=== PATIENT | female | born 1950 | race Caucasian/White ===

== ENCOUNTER 2017-11-20 06:06 | Day surgery (SDC) | payer OTHER, BC ==
[~2017-11-20 06:06] MED LIST: Lactated Ringers 1,000 ML IV SCH; ceFAZolin 2 GM in Premix Bag 1 BAG IV ONE
[2017-11-20] MEDS ORDERED: Lactated Ringers 1,000 ML IV SCH (06:30)
[2017-11-20] MEDS ORDERED: Gentamicin 40 MG/ML 2 ML Vial ONE (06:42)
[2017-11-20] MEDS ORDERED: Povidone-Iodine 10% Soln 118.25 ML Bottle ONE (06:43)
[2017-11-20] MEDS ORDERED: ceFAZolin 2 GM in Premix Bag 1 BAG IV ONE (07:00)
[2017-11-20] MEDS ORDERED: Midazolam 1 MG/ML 2 ML SDV ONE (07:20)
[2017-11-20] MEDS ORDERED: fentaNYL 100 MCG/2 ML SDV ONE (07:20)
[2017-11-20] MEDS ORDERED: Propofol 200 MG/20 ML SDV ONE ×2 (07:21→08:09)
[2017-11-20] MEDS ORDERED: TRANEXAMIC ACID IV SCH ×2 (07:45→10:00)
[2017-11-20] MEDS ORDERED: SODIUM CHLORIDE 0.9% IV SCH ×2 (07:45→10:00)
[2017-11-20] MEDS ORDERED: Ropivacaine 49.25 ML, Ketorolac 30 MG, EPINEPHrine 0.5 MG, cloNIDine 80 MCG, Sodium Chl... INJECT ONE ×5 (07:45)
[2017-11-20] MEDS ORDERED: Phenylephrine 1% 10 MG/ML SDV ONE (08:43)
[2017-11-20] MEDS ORDERED: Aluminum Hydroxide/Magnesium Hydroxide/Simethicone Susp 30 ML Cup PO PRN (09:07)
[2017-11-20] MEDS ORDERED: Zolpidem 5 MG Tab PO PRN (09:07)
[2017-11-20] MEDS ORDERED: diphenhydrAMINE 50 MG/ML SDV IVPUSH PRN (09:07)
[2017-11-20] MEDS ORDERED: Ondansetron 4 MG/2 ML SDV IVPUSH PRN (09:07)
[2017-11-20] MEDS ORDERED: traMADol 50 MG Tab PO PRN (09:07)
[2017-11-20] MEDS ORDERED: Ketorolac 30 MG/ML SDV IVPUSH PRN (09:07)
[2017-11-20] MEDS ORDERED: Acetaminophen 1,000 MG in Premix Bag 1 BAG IV ONE ×2 (09:07→11:30)
[2017-11-20] MEDS ORDERED: Naloxone 0.4 MG/ML SDV IVPUSH PRN (09:07)
[2017-11-20] MEDS ORDERED: Morphine 2 MG/ML Syringe IVPUSH PRN (09:07)
[2017-11-20] MEDS ORDERED: Cetirizine 10 MG Tab PO PRN (09:12)
[2017-11-20] MEDS ORDERED: Fluticasone Propionate Nasal Spray 16 GM Bottle NASBOTH PRN (09:12)
[2017-11-20] MEDS ORDERED: Non-Formulary Medication 1 Each (Olopatadine [Patanol 0.1% Ophth Soln] 1 DROP) EYEBOTH PRN (09:12)
[2017-11-20] MEDS ORDERED: Meclizine 25 MG Tab PO PRN (09:12)
[2017-11-20] MEDS ORDERED: Hyoscyamine 0.125 MG Tab.SL PO PRN (09:12)
[2017-11-20] MEDS ORDERED: Albuterol 0.083% 2.5 MG/3 ML Neb Soln INH PRN (09:12)
[2017-11-20] MEDS ORDERED: Albuterol 8 GM Inhaler INH PRN (09:12)
[2017-11-20] MEDS ORDERED: ceFAZolin 1 GM in Sodium Chloride 0.9% 50 ML IV SCH (09:15)
[2017-11-20] MEDS ORDERED: ESTRADIOL TOP SCH (09:15)
--- NOTE | 2017-11-20 10:19 | CR ---
Knee 1V or 2V Rt CLINICAL HISTORY: Postop FINDINGS: Patient has had a medial partial arthroplasty. There is some subcutaneous and synovial air and fluid. Components appear well seated. Impression: Status post partial arthroplasty
[2017-11-20] MEDS ORDERED: OLOPATADINE 0.1% EYEBOTH PRN (10:41)
[2017-11-20] MEDS: oxyCODONE 5 MG Tab PO PRN ×3 (12:15→22:06)
[2017-11-20] MEDS: ceFAZolin 1 GM in Premix Bag 1 BAG IV SCH ×2 (14:49→22:05)
--- NOTE | 2017-11-20 15:04 | OR ---
DATE OF PROCEDURE: 11/20/2017 PREOPERATIVE DIAGNOSIS: Right knee primary osteoarthritis. POSTOPERATIVE DIAGNOSIS: Right knee primary osteoarthritis. PROCEDURE: Right knee unicompartmental medial knee arthroplasty. PACK OPERATOR: CATHERINE Mullins ANESTHESIA: Spinal plus conscious sedation. FLUID: Lactated Ringer solution. ESTIMATED BLOOD LOSS: 50 mL. COMPLICATIONS: None. SPECIMEN: None. DISCHARGE DISPOSITION: Stable to PACU. INSTRUMENTATION: DePuy Sigma unicompartmental partial knee. INDICATIONS: The patient was seen preoperatively in the clinic. She had failed nonoperative treatment. Preoperative imaging confirmed the above-mentioned diagnosis. Risks and benefits of the procedure were explained to the patient and informed consent was obtained. DESCRIPTION OF PROCEDURE: The patient was seen preoperatively by myself and the Anesthesia staff in the preoperative holding area, where the operative site was marked. She was brought to the operative suite by the Anesthesia staff, where spinal anesthesia plus conscious sedation was administered. A well-padded tourniquet was placed on the right thigh and SCDs were on the left leg. The left leg was placed into a stirrup. The right leg, after the tourniquet was applied, was placed into U-rivas with a gel pad underneath. The right lower extremity was then prepped and draped in a sterile manner. Time-out was called identifying the correct patient, the correct procedure, the correct site, and that antibiotics had been begun within an appropriate period of time. The right lower extremity was then exsanguinated. Tourniquet was raised to 250 mmHg for 42 minutes and let down after cementing an incision from the tibial tubercle over the medial aspect of the patella and then to the superior pole of patella was then made. A medial parapatellar arthrotomy was then made. Bleeding was controlled during the case with Bovie electrocautery. Gelpis were used for retraction. The infrapatellar fat pad was removed. A medial synovectomy was performed. Part of the anterior portion of the medial meniscus was removed. We then placed our extramedullary guide on the tibia and pinned in place with a 2-mm Feeler gauge and then made the cut. I then used a 7-mm spacer, which was not able to enter in flexion or extension. I then re-did my cut and then was able to get the 7 in flexion and then a 10 in extension. We then removed our pins. I then placed a 3-mm darrion on my distal femoral guide. I then put the knee in extension with the distal femoral guide, pinned it in place, and then made my distal femoral cut. Please note that, before I did this, I did ofelia my rotation with my tibial spacer. After making the distal femoral cut, I then used my tibial guide and placed the knee in flexion and then made another ofelia. I then connected the anterior and posterior markings for reference. I then flexed the knee and then used my guide and pinned it in place with the lateral hole of the proximal portion of the guide going through the AP line in its most proximal portion. I then pinned this guide in place medially and laterally, and then made my chamfer cuts as well as my lug drill holes. After this had been performed, we removed the guide and removed any extra bone using a small osteotome. I then trialed my femur and then placed a 7-mm tibial spacer, which provided good clearance and stability. We then removed the femoral component and the tibial guide. I then placed my keel guide and pinned it in place and then cut my keel as well as the lug in the tibial baseplate. We then removed this and then trialed with the femoral component, tibial baseplate component, and insert. This provided excellent stability. We then removed all our components, copiously irrigated with saline, and then cemented our final components in place, which was a 7-mm polyethylene spacer. We then removed any extra cement and then kept the leg in extension and let the tourniquet down during cementing at 42 minutes. After the cement had dried, we controlled any extraneous bleeders with Bovie electrocautery and made sure we had no extra cement. This provided excellent range of motion as well as stability throughout motion. We then closed with #2 STRATAFIX, 3-0 STRATAFIX, skin gualberto, and a sterile dressing. The patient was then transferred to her hospital bed after removing the tourniquet and taken to the PACU in a stable condition. Hemal Hendrix DO /[id number]
[2017-11-20] MEDS: Cholestyramine/Sucrose Powder 4 GM Packet PO SCH (20:29)
[2017-11-20] MEDS: Docusate Sodium 100 MG Cap PO SCH (20:30)
[2017-11-20] MEDS: Sennosides 8.6 MG Tab PO SCH (20:30)
[2017-11-20] MEDS: CEVIMELINE 30 MG PO SCH (20:31)
[2017-11-20] MEDS: Formoterol/Mometasone 200-5 MCG 8.8 GM Inhaler IH SCH (20:31)
[2017-11-20] MEDS: Magnesium Hydroxide 400 MG/5 ML Susp 30 ML Cup PO SCH (20:31)
[2017-11-20] MEDS ORDERED: Cholestyramine/Sucrose Powder 4 GM Packet PO SCH (21:00)
[2017-11-20] MEDS ORDERED: Non-Formulary Medication 1 Each (Fluticasone/Salmeterol [Advair 250-50 Diskus] 1 PUFF) INH SCH (21:00)
[2017-11-20] MEDS ORDERED: Docusate Sodium 100 MG Cap PO SCH ×3 (21:00)
[2017-11-20] MEDS ORDERED: Montelukast 10 MG Tab PO SCH (21:00)
[2017-11-20] MEDS ORDERED: rOPINIRole 0.5 MG Tab PO SCH ×2 (21:00)
[2017-11-20] MEDS ORDERED: Montelukast 5 MG Tab.Chew PO SCH (21:00)
[2017-11-20] MEDS ORDERED: Nortriptyline 25 MG Cap PO SCH ×2 (21:00)
[2017-11-20] MEDS ORDERED: Sennosides 8.6 MG Tab PO SCH (21:00)
[2017-11-20] MEDS ORDERED: Famotidine 20 MG Tab PO SCH ×2 (21:00)
[2017-11-20] MEDS ORDERED: Magnesium Hydroxide 400 MG/5 ML Susp 30 ML Cup PO SCH (21:00)
[2017-11-21] MEDS: oxyCODONE 5 MG Tab PO PRN ×2 (02:34→06:38)
[2017-11-21] MEDS: ceFAZolin 1 GM in Premix Bag 1 BAG IV SCH (05:33)
[2017-11-21] MEDS: Formoterol/Mometasone 200-5 MCG 8.8 GM Inhaler IH SCH (07:33)
[2017-11-21] MEDS ORDERED: Non-Formulary Medication 1 Each (Multivitamin With Minerals [Multiple Vitamin] 1 TAB) PO SCH (09:00)
[2017-11-21] MEDS ORDERED: Aspirin 325 MG Tab.EC PO SCH ×2 (09:00→09:07)
[2017-11-21] MEDS ORDERED: Bisacodyl 5 MG Tab PO SCH ×2 (09:00)
[2017-11-21] MEDS ORDERED: Multivitamins with Iron/Calcium/Folic Acid/Minerals Tab PO SCH (09:00)
[2017-11-21] MEDS ORDERED: Sodium Chloride 0.9% 10 ML Syringe FLUSH SCH (09:00)
[2017-11-21] MEDS ORDERED: Montelukast 10 MG Tab PO SCH ×2 (09:00)
[2017-11-21] MEDS ORDERED: Acetaminophen/oxyCODONE 325-5 MG Tab PO PRN (09:07)
[2017-11-21] MEDS: Docusate Sodium 100 MG Cap PO SCH (09:09)
[2017-11-21] MEDS: Sennosides 8.6 MG Tab PO SCH (09:09)
[2017-11-21] MEDS: Cholestyramine/Sucrose Powder 4 GM Packet PO SCH ×2 (09:09→09:13)
[2017-11-21] MEDS: Magnesium Hydroxide 400 MG/5 ML Susp 30 ML Cup PO SCH (09:09)
[2017-11-21] MEDS: CEVIMELINE 30 MG PO SCH ×2 (09:10→15:23)
[2017-11-22] MEDS ORDERED: ESTRADIOL 0.01% TOP SCH (09:00)
== END 2017-11-21 15:38 | disposition home or self-care (01) ==
LOC: UNDOADMIN 06:06 → JP.SDS 06:06 → JP.SDSSCHI 06:06 → EDSTATUS 07:30 → JP.SDSSCHI 09:08 → JP.MS 09:08 → JP.SDS 11-21 15:38 → UNDODISIN 11-21 15:38
PROVIDERS: ATTEND Orthopaedic Surgery
DX: M17.11 Unilateral primary osteoarthritis, right knee (principal); Z88.8 Allergy status to other drugs, medicaments and biological substances; Z79.899 Other long term (current) drug therapy
CPT/HCPCS: 27446; 36415; 73560; 80053; 85025; 94664; 97110; 97161; 97165; 97530; 97535; A9270; C1713; J0131; J0171; J0690; J0735; J1580; J1885; J2250; J2370; J2704; J2795; J3010; J7050; J7120

== ENCOUNTER 2019-02-02 06:22 | Day surgery (SDC) | payer OTHER ==
[2019-02-02] MEDS ORDERED: Bupivacaine 0.25% 10 ML SDV ONE (06:40)
[2019-02-02] MEDS ORDERED: Nozin Nasal Sanitizer NASBOTH ONE (06:47)
[2019-02-02] MEDS ORDERED: Lactated Ringers 1,000 ML IV SCH (07:15)
[2019-02-02] MEDS ORDERED: Rocuronium 50 MG/5 ML Vial ONE (07:23)
[2019-02-02] MEDS ORDERED: Neostigmine Methylsulfate 1 MG/ML 5 ML Syringe ONE (07:23)
[2019-02-02] MEDS ORDERED: Propofol 200 MG/20 ML SDV ONE (07:23)
[2019-02-02] MEDS ORDERED: Ondansetron 4 MG/2 ML SDV ONE (07:23)
[2019-02-02] MEDS ORDERED: Dexamethasone 4 MG/ML SDV ONE (07:23)
[2019-02-02] MEDS ORDERED: Glycopyrrolate 0.2 MG/ML 5 ML MDV ONE (07:23)
[2019-02-02] MEDS ORDERED: Succinylcholine 200 MG/10 ML MDV ONE (07:23)
[2019-02-02] MEDS ORDERED: fentaNYL 250 MCG/5 ML SDV ONE (07:24)
[2019-02-02] MEDS ORDERED: ceFAZolin 2 GM in Premix Bag 1 BAG IV ONE (08:00)
[2019-02-02] MEDS ORDERED: ceFAZolin 2 GM in Sodium Chloride 0.9% 100 ML IV ONE (08:00)
[2019-02-02] MEDS ORDERED: Ketorolac 60 MG/2 ML SDV ONE (08:43)
[2019-02-02] MEDS ORDERED: Acetaminophen/HYDROcodone 325-5 MG Tab PO PRN (09:48)
--- NOTE | 2019-02-05 14:50 | OR ---
DATE OF PROCEDURE: 02/02/2019 SURGEON: Souleymane Mcclure MD PREOPERATIVE DIAGNOSIS: Lateral meniscus tear, right knee. POSTOPERATIVE DIAGNOSES: 1. Degenerative lateral meniscus tear, right knee. 2. Chondral defect, lateral femoral condyle, right knee. PROCEDURE: Arthroscopy, right knee, with partial lateral meniscectomy. ANESTHESIA: General. INDICATIONS: Danika Kaufman is a very pleasant 68-year-old female with history of a right medial unicompartmental arthroplasty done on 11/21/2017. She has been having persistent pain in the lateral aspect of the knee for the past several months. She has failed conservative treatment with physical therapy and injection. Unable to get significant meaningful imaging due to the medial compartment implant. She now presents for arthroscopic evaluation of the knee for a probable lateral meniscus tear. Risks, benefits, and potential complications of the procedure were discussed. DESCRIPTION OF PROCEDURE: After adequate anesthesia was obtained, the patient was placed supine with a tourniquet about the right upper thigh. Right leg was prepped and draped in a sterile fashion. Leg was exsanguinated and tourniquet inflated to 250 mmHg. A standard inferior anterolateral portal was established. The scope was introduced. Medial portal was then established under direct visualization, avoiding contact with the implant. Evaluation of the knee revealed a medial unicompartmental arthroplasty without evidence of complication. Mild encroachment of some scar tissue and pseudo-meniscus onto the tibial implant was present. A portion of this was debrided for better visualization of the implant and medial compartment. No obvious loosening or complications were noted. Evaluation of the patellofemoral joint revealed some mild grade 1 and early grade 2 changes in the trochlear groove without significant irregularity or full-thickness loss. Lateral compartment revealed a linear defect in the articular cartilage in the lateral femoral condyle, running from anterior to posterior, which was approximately 2 mm in width and runs for a distance of approximately 12 to 14 mm along the weightbearing surface of the lateral femoral condyle, just slightly lateral to the midline of the condyle. This was a very regular longitudinal defect, which had the appearance of having been gouged by a foreign body or instrument of some type. Certainly, it did not have a typical appearance of chondromalacia or other degenerative change. Some minor fibrillation was present on the very anterior edge of the defect. Adjacent to the edge of the defect was a degenerative tear of the lateral meniscus at approximately the junction between the anterior horn and midbody. This was debrided with shaver, taking this back to a stable margin, performing a minor partial lateral meniscectomy. Due to the unusual nature of the defect, it was thought that there was a potential for a loose body such as a piece of polymethylmethacrylate from the cementing of the medial prosthesis or other hard foreign body that might cause this. The knee was thoroughly irrigated and explored, including the suprapatellar pouch, medial and lateral gutters, and the area beneath the meniscus laterally and back into the popliteal hiatus. No evidence of a foreign body or other reason for the furrow could be identified. The knee was then drained and scope was withdrawn. Port sites were closed in a standard fashion, infiltrated with Marcaine, and a sterile dressing was applied. The patient tolerated the procedure very well. There were no complications. She was taken from the operating room in a stable condition. Souleymane Mcclure MD /[id number]
== END 2019-02-02 10:55 | disposition home or self-care (01) ==
LOC: JP.SDS 06:22
PROVIDERS: ATTEND Specialist
DX: M23.361 Other meniscus derangements, other lateral meniscus, right knee (principal); M94.8X6 Other specified disorders of cartilage, lower leg; G89.29 Other chronic pain; M25.561 Pain in right knee; J45.909 Unspecified asthma, uncomplicated; Z88.7 Allergy status to serum and vaccine; Z96.651 Presence of right artificial knee joint; Z79.51 Long term (current) use of inhaled steroids; Z79.899 Other long term (current) drug therapy; Z98.890 Other specified postprocedural states
CPT/HCPCS: 29881; A9270; J0330; J0690; J1100; J1885; J2405; J2704; J2710; J3010; J3490; J7120

== ENCOUNTER 2020-06-06 08:29 | Inpatient (IN) | payer OTHER ==
[2020-06-13] MEDS ORDERED: Povidone-Iodine 10% Soln 118.25 ML Bottle ONE (06:57)
[2020-06-13] MEDS ORDERED: Lactated Ringers 1,000 ML IV SCH (09:00)
[2020-06-13] MEDS ORDERED: Scopolamine 1.5 MG Transdermal Patch TOP SCH (09:30)
[2020-06-13] MEDS: Nozin Nasal Sanitizer NASBOTH SCH ×2 (09:35→21:03)
[2020-06-13] MEDS ORDERED: Propofol 200 MG/20 ML SDV ONE ×2 (10:50→12:22)
[2020-06-13] MEDS ORDERED: Midazolam 1 MG/ML 2 ML SDV ONE (10:50)
[2020-06-13] MEDS ORDERED: fentaNYL 100 MCG/2 ML SDV ONE (10:50)
[2020-06-13] MEDS ORDERED: ceFAZolin 1 GM Vial ONE (11:40)
[2020-06-13] MEDS ORDERED: Lactated Ringers 1,000 ML ONE (12:11)
[2020-06-13] MEDS ORDERED: Acetaminophen/HYDROcodone 325-5 MG Tab PO PRN (13:13)
[2020-06-13] MEDS ORDERED: Morphine 2 MG/ML SYRINGE IVPUSH PRN (13:13)
[2020-06-13] MEDS ORDERED: Ketorolac 30 MG/ML SDV IVPUSH SCH (13:15)
[2020-06-13] MEDS ORDERED: ceFAZolin 1 GM in Sodium Chloride 0.9% 50 ML IV SCH (13:15)
[2020-06-13] MEDS ORDERED: Famotidine 20 MG Tab PO PRN (13:21)
[2020-06-13] MEDS ORDERED: CEVIMELINE 30 MG PO PRN ×2 (13:21→14:22)
[2020-06-13] MEDS ORDERED: Cetirizine 10 MG Tab PO PRN (13:21)
[2020-06-13] MEDS ORDERED: Fluticasone Propionate Nasal Spray 16 GM Bottle NASBOTH PRN (13:21)
[2020-06-13] MEDS ORDERED: Albuterol 0.083% 2.5 MG/3 ML Neb Soln INH PRN (13:21)
[2020-06-13] MEDS ORDERED: Meclizine 25 MG Tab PO PRN (13:21)
[2020-06-13] MEDS ORDERED: Albuterol 8 GM Inhaler INH PRN (13:21)
[2020-06-13] MEDS ORDERED: Non-Formulary Medication 1 Each (Hyoscyamine [Levsin] 0.125 MG) PO PRN (13:21)
[2020-06-13] MEDS ORDERED: ESTRADIOL TOP SCH ×2 (13:30→14:30)
[2020-06-13] MEDS ORDERED: Formoterol/Mometasone 200-5 MCG 8.8 GM Inhaler IH PRN (13:45)
[2020-06-13] MEDS ORDERED: Ketotifen 0.025% Ophth Soln 5 ML Bottle EYEBOTH PRN (13:46)
[2020-06-13] MEDS ORDERED: Hyoscyamine 0.125 MG Tab.SL SL PRN (14:00)
--- NOTE | 2020-06-13 14:04 | CR ---
Knee 1V or 2V Rt CLINICAL HISTORY: Right knee revision FINDINGS: Patient has had 3 component total knee arthroplasty. This is a revision of a hemiarthroplasty. Components appear well seated. There is intra-articular and subcutaneous air Impression: Status post 3 component total knee arthroplasty
[2020-06-13] MEDS: Sodium Chloride 0.9% 1,000 ML IV SCH ×2 (14:27→22:53)
[2020-06-13] MEDS: Acetaminophen/oxyCODONE 325-5 MG Tab PO PRN ×2 (14:52→21:11)
[2020-06-13] MEDS: SCOPOLAMINE PATCH CHECK TOP SCH (14:55)
[2020-06-13] MEDS: Ketorolac 30 MG/ML SDV IVPUSH SCH (15:57)
[2020-06-13] MEDS: ceFAZolin 1 GM in Premix Bag 1 BAG IV SCH (17:04)
[2020-06-13] MEDS ORDERED: Montelukast 10 MG Tab PO SCH (21:00)
[2020-06-13] MEDS ORDERED: rOPINIRole 0.5 MG Tab PO SCH (21:00)
[2020-06-13] MEDS ORDERED: Docusate Sodium 100 MG Cap PO SCH (21:00)
[2020-06-13] MEDS ORDERED: Nortriptyline 25 MG Cap PO SCH (21:00)
[2020-06-13] MEDS: Docusate Sodium 100 MG Cap PO SCH (21:02)
[2020-06-13] MEDS: Montelukast 10 MG Tab PO SCH (21:02)
[2020-06-13] MEDS: rOPINIRole 0.5 MG Tab PO SCH (21:03)
[2020-06-13] MEDS: Nortriptyline 25 MG Cap PO SCH (21:03)
[2020-06-14] MEDS: Ketorolac 30 MG/ML SDV IVPUSH SCH ×4 (00:20→23:59)
[2020-06-14] MEDS: ceFAZolin 1 GM in Premix Bag 1 BAG IV SCH ×2 (01:31→09:34)
[2020-06-14] MEDS: Acetaminophen/oxyCODONE 325-5 MG Tab PO PRN ×3 (02:53→13:44)
[2020-06-14] MEDS: Sodium Chloride 0.9% 1,000 ML IV SCH (07:28)
[2020-06-14] MEDS: Enoxaparin 30 MG/0.3 ML Syringe SUBCUT SCH (08:09)
[2020-06-14] MEDS: Docusate Sodium 100 MG Cap PO SCH ×2 (08:10→20:45)
[2020-06-14] MEDS: Nozin Nasal Sanitizer NASBOTH SCH ×2 (08:10→20:45)
[2020-06-14] MEDS ORDERED: Enoxaparin 30 MG/0.3 ML Syringe SUBCUT SCH (09:00)
[2020-06-14] MEDS: SCOPOLAMINE PATCH CHECK TOP SCH (13:46)
[2020-06-14] MEDS: rOPINIRole 0.5 MG Tab PO SCH (20:45)
[2020-06-14] MEDS: Montelukast 10 MG Tab PO SCH (20:45)
[2020-06-14] MEDS: Nortriptyline 25 MG Cap PO SCH (20:46)
[2020-06-15] MEDS: Acetaminophen 325 MG Tab PO PRN ×2 (00:06→13:24)
[2020-06-15] MEDS: Ketorolac 30 MG/ML SDV IVPUSH SCH (08:14)
[2020-06-15] MEDS: Nozin Nasal Sanitizer NASBOTH SCH (09:27)
[2020-06-15] MEDS: Docusate Sodium 100 MG Cap PO SCH (09:31)
[2020-06-15] MEDS: Enoxaparin 30 MG/0.3 ML Syringe SUBCUT SCH (09:31)
[2020-06-15] MEDS: SCOPOLAMINE PATCH CHECK TOP SCH (09:32)
[2020-06-15] MEDS ORDERED: Magnesium Hydroxide 400 MG/5 ML Susp 30 ML Cup PO ONE (10:15)
[2020-06-15] MEDS: Acetaminophen/oxyCODONE 325-5 MG Tab PO PRN (10:36)
[2020-06-19] MEDS ORDERED: Alendronate 70 MG Tab PO SCH (07:30)
--- NOTE | 2020-06-27 19:02 | OR ---
DATE OF PROCEDURE: 06/13/2020 SURGEON: Souleymane Mcclure MD PREOPERATIVE DIAGNOSIS: Failed right medial unicompartmental arthroplasty. POSTOPERATIVE DIAGNOSIS: Failed right medial unicompartmental arthroplasty with loose femoral component. PROCEDURE: Revision of unicompartmental arthroplasty to total knee arthroplasty using Cory LCCK components with size 4 femur with a 14 x 100 mm stem, size D tibia with an 11 x 100 mm offset stem, 12 mm posterior stabilized polyethylene, and a 29 mm patella. ANESTHESIA: Spinal with sedation. INDICATIONS: Danika Kaufman is a very pleasant 70-year-old female with a history of previous medial unicompartmental arthroplasty who has been having persistent right knee pain. This is most prominent in the lateral aspect of the knee, but has some diffuse pain getting progressively worse over the last several months. She underwent a previous arthroscopy after the unicompartmental arthroplasty revealing articular cartilage defect in the lateral femoral condyle. X-rays show a progressive valgus malalignment which is also visible clinically. She now presents for conversion of the unicompartmental arthroplasty to a total knee arthroplasty. Risks, benefits, potential complications of procedure were discussed. PROCEDURE IN DETAIL: After adequate anesthesia was obtained, the patient was placed supine with a tourniquet about the right upper thigh and right leg was prepped and draped in a sterile fashion. Leg was exsanguinated and tourniquet inflated to 250 mmHg pressure. Previous incision was utilized and extended slightly inferiorly and more superiorly up over the patellar tendon. Medial parapatellar arthrotomy was performed. The previously placed nonabsorbable sutures were encountered and these were removed with a combination of Akosua clamp and rongeur. There was no evidence of infection. The components were not grossly loose. The femoral component was quite prominent distally. Using a combination of curved and straight small osteotomes, the femoral component was loosened and removed easily and very minimal bone loss consistent with early loosening. Attention was then turned to the tibia side. Polyethylene was removed with an osteotome. Working beneath the component with a straight osteotome, the component was loosened and removed. This did not show any significant loosening and had good penetration of bone cement in the tibia. Osteotome was used to remove remaining portions of the bone cement in both the femur and the tibia. Intramedullary canal of the femur was then drilled and the intramedullary guide was placed. This was referenced off the lateral compartment condyle and resulted in a light freshening of the distal medial condyle as well. Working off the intramedullary guide, the femur was sized and the distal femoral cutting jig was secured, remaining cuts were made laterally. The posterior and chamfer cuts were freshened medially. Drill holes were made in the condyles. The guide and the intramedullary portion were removed. Trial femoral component was placed and the intramedullary notch was then cut for a posterior cruciate- sacrificing component. Initial drill was then placed into the tibia and down the canal. This was sequentially reamed and the last reamer was left in place. Tibial cutting jig was secured to the intramedullary reamer and this resulted in minimal resection of bone medially and the remaining lateral tibial plateau was removed. Lateral meniscus was excised. The tibia was sized and position set using the offset guide. The intramedullary reamer was removed. The metaphysis was then reamed once again with a larger size and the pins were then cut. The femoral trial was replaced along with a 10-mm tibial insert. Attention was turned to the patella. This was partially everted and held with towel clips. The posterior aspect of the patella was resected with an oscillating saw. This was sized and peg holes were drilled and a trial component was placed. The knee was then taken through range of motion. It had full extension, overall alignment looked very good. There was still just a slight amount of play both medially and laterally and an additional 2 mm was added to the tibial trial. This resulted in excellent balance in flexion and extension and no lateral release was needed. Patella tracked very well. The components were removed. The knee was thoroughly irrigated with pulse lavage. Bone surfaces were dried. The components were then assembled on the back table and cemented in place. Excess cement was removed. The knee was held in full extension with a 12-mm trial insert as cement cured. Once this had occurred, the knee was again taken through range of motion and the balance was assessed in both flexion and extension with excellent stability. The trials were removed. The knee was irrigated. Final polyethylene was snapped into position. The knee was irrigated once again followed by a dilute Betadine solution which was left in place for 2.5 minutes and then irrigated with pulse lavage. The capsule was closed with #2 Ethibond in interrupted fashion. The skin was closed with 2-0 Vicryl and a running 3-0 Monocryl. Steri-Strips were applied. Light compressive dressing was then placed. The patient tolerated the procedure very well. There were no complications. Taken from the operating room in stable condition. Souleymane Mcclure MD /[id number] MTDD
== END 2020-06-15 16:20 | disposition home or self-care (01) | DRG 468 ==
LOC: JP.SDSSCHI 06-13 08:38 → JP.SDS 06-13 08:38 → EDSTATUS 06-13 10:30 → JP.MS 06-13 13:13
PROVIDERS: ADMIT Specialist; ATTEND Specialist
PROC: 0SPC0LZ Removal of Medial Unicondylar Synthetic Substitute from Right Knee Joint, Open Approach (ICD-10-PCS; principal; 2020-06-13)
PROC: 0SRC0L9 Replacement of Right Knee Joint with Medial Unicondylar Synthetic Substitute, Cemented, Open Approach (ICD-10-PCS; 2020-06-13)
DX: T84.032A Mechanical loosening of internal right knee prosthetic joint, initial encounter (principal); G25.81 Restless legs syndrome; J45.909 Unspecified asthma, uncomplicated; I73.9 Peripheral vascular disease, unspecified; K21.9 Gastro-esophageal reflux disease without esophagitis; K58.0 Irritable bowel syndrome with diarrhea; Z88.8 Allergy status to other drugs, medicaments and biological substances; Z79.82 Long term (current) use of aspirin; Z79.899 Other long term (current) drug therapy
CPT/HCPCS: 27447; 36415; 73560-26-RT; 73560-RT; 86850; 86900; 86901; 93005; 93010; 97110-GP; 97116-GP; 97161-GP; 97165-GO; 97530-GP; 97535-GP; A9270-GY; C1713; C1776; J0690; J1650; J1885; J2250; J2270; J2704; J3010; J7030; J7120

== ENCOUNTER 2020-08-08 07:22 | Day surgery (SDC) | payer OTHER ==
[~2020-08-08 07:22] MED LIST changes: +Bupivacaine 0.5%/EPINEPHrine 1:200,000 50 ML MDV ONE; -Lactated Ringers 1,000 ML IV SCH; -ceFAZolin 2 GM in Premix Bag 1 BAG IV ONE; +methylPREDNISolone Acetate 80 MG/ML SDV ONE
[2020-08-08] MEDS ORDERED: Lactated Ringers 1,000 ML IV SCH (09:15)
[2020-08-08] MEDS ORDERED: Midazolam 1 MG/ML 2 ML SDV ONE (10:26)
[2020-08-08] MEDS ORDERED: Propofol 200 MG/20 ML SDV ONE (10:26)
[2020-08-08] MEDS ORDERED: fentaNYL 100 MCG/2 ML SDV ONE (10:26)
--- NOTE | 2020-08-22 16:25 | OR ---
DATE OF PROCEDURE: 08/08/2020 SURGEON: Souleymane Mcclure MD PREOPERATIVE DIAGNOSIS: Arthrofibrosis, right knee. POSTOPERATIVE DIAGNOSIS: Arthrofibrosis, right knee. PROCEDURE: Manipulation under anesthesia right knee and injection of cortisone. INDICATIONS: Danika Kaufman is a 70-year-old female who underwent a right total knee arthroplasty approximately 2 months ago and has had difficulty regaining range of motion. She has done well with extension, but has been unable to get beyond 100 degrees of flexion despite aggressive physical therapy. She now presents for manipulation under anesthesia. The risks, benefits, potential complications of the procedure were discussed. DESCRIPTION OF PROCEDURE: After adequate sedation was obtained with the patient supine on a gurney, the knee was brought up into flexion with a hard stop at approximately 98 degrees. Gentle progressive flexion force was applied to the knee with a palpable release of adhesions. Initial flexion was obtained to approximately 118 degrees. Knee was then extended and flexed once again, and with further slow gentle pressure, approximately 124 degrees of flexion could be obtained. This was repeated once again and held at approximately 120 degrees for 15 to 20 seconds. The knee was then extended. Superior lateral aspect of the knee was prepped with alcohol followed by a prep with ChloraPrep and then injected with 80 mg of Depo-Medrol along with 10 mL of 0.5% Marcaine. A Band-Aid was applied. The patient tolerated the procedure very well. There were no complications. She was taken from the operating room in stable condition. Souleymane Mcclure MD /[id number]
== END 2020-08-08 12:00 | disposition home or self-care (01) ==
LOC: JP.SDS 07:22
PROVIDERS: ATTEND Specialist
DX: T84.82XA Fibrosis due to internal orthopedic prosthetic devices, implants and grafts, initial encounter (principal); J45.909 Unspecified asthma, uncomplicated; Z96.651 Presence of right artificial knee joint; Z88.7 Allergy status to serum and vaccine; Z79.899 Other long term (current) drug therapy; Z79.82 Long term (current) use of aspirin; Z01.812 Encounter for preprocedural laboratory examination; Z20.828 Contact with and (suspected) exposure to other viral communicable diseases
CPT/HCPCS: J1040; J2250; J2704; J3010; J3490; J7120; U0002

== ENCOUNTER 2022-01-17 05:34 | Day surgery (SDC) | payer OTHER ==
[2022-01-17] MEDS ORDERED: Lactated Ringers 1,000 ML IV SCH (06:00)
[2022-01-17] MEDS ORDERED: Nozin Nasal Sanitizer NASBOTH ONE (06:00)
[2022-01-17] MEDS ORDERED: Bupivacaine 0.5% 30 ML SDV ONE (06:42)
[2022-01-17] MEDS ORDERED: ceFAZolin 1 GM in Premix Bag 1 BAG IV ONE (07:00)
[2022-01-17] MEDS ORDERED: Midazolam 1 MG/ML 2 ML SDV ONE (07:15)
[2022-01-17] MEDS ORDERED: Propofol 200 MG/20 ML SDV ONE (07:15)
[2022-01-17] MEDS ORDERED: fentaNYL 100 MCG/2 ML SDV ONE ×2 (07:15→08:15)
[2022-01-17] MEDS ORDERED: Ondansetron 4 MG/2 ML SDV ONE (08:04)
[2022-01-17] MEDS ORDERED: Dexamethasone 4 MG/ML SDV ONE (08:04)
[2022-01-17] MEDS ORDERED: traMADol 50 MG Tab PO PRN (09:31)
== END 2022-01-17 10:40 | disposition home or self-care (01) ==
LOC: JP.SDS 05:34
PROVIDERS: ATTEND Specialist
DX: M24.661 Ankylosis, right knee (principal); M25.061 Hemarthrosis, right knee; M65.161 Other infective (teno)synovitis, right knee; J45.909 Unspecified asthma, uncomplicated; K21.9 Gastro-esophageal reflux disease without esophagitis; Z88.7 Allergy status to serum and vaccine; Z87.891 Personal history of nicotine dependence; Z01.812 Encounter for preprocedural laboratory examination; Z20.822 Contact with and (suspected) exposure to COVID-19
CPT/HCPCS: 29884; 36415; 80053; 85027; 87635; A9270; J0690; J1100; J2250; J2405; J2704; J3010; J3490; J7120; U0002

== ENCOUNTER 2022-12-05 07:03 | Day surgery (SDC) | payer MEDICARE, BC ==
[~2022-12-05 07:03] MED LIST changes: +Bupivacaine 0.5% 30 ML SDV ONE; -Bupivacaine 0.5%/EPINEPHrine 1:200,000 50 ML MDV ONE; -methylPREDNISolone Acetate 80 MG/ML SDV ONE
[2022-12-05] MEDS ORDERED: ceFAZolin 1 GM in Premix Bag 1 BAG IV ONE (07:30)
[2022-12-05] MEDS ORDERED: Lactated Ringers 1,000 ML IV SCH (07:30)
[2022-12-05] MEDS ORDERED: Nozin Nasal Sanitizer NASBOTH ONE (07:30)
[2022-12-05] MEDS ORDERED: Propofol 200 MG/20 ML SDV ONE ×2 (07:36→09:03)
[2022-12-05] MEDS ORDERED: Midazolam 1 MG/ML 2 ML SDV ONE (07:36)
[2022-12-05] MEDS ORDERED: fentaNYL 100 MCG/2 ML SDV ONE (07:36)
[2022-12-05] MEDS ORDERED: Ondansetron 4 MG/2 ML SDV ONE (07:37)
[2022-12-05] MEDS ORDERED: Lidocaine 0.5% 50 ML SDV ONE (07:37)
[2022-12-05 07:47] LABS: ESTIMATED GFR 92 mL/min (>60)
[2022-12-05] MEDS ORDERED: Acetaminophen/HYDROcodone 325-5 MG Tab PO PRN (10:14)
== END 2022-12-05 10:45 | disposition home or self-care (01) ==
LOC: JP.SDS 07:03
PROVIDERS: ATTEND Specialist
DX: M65.341 Trigger finger, right ring finger (principal); M65.351 Trigger finger, right little finger; M65.312 Trigger thumb, left thumb; M65.342 Trigger finger, left ring finger; K21.9 Gastro-esophageal reflux disease without esophagitis; G25.81 Restless legs syndrome; J45.909 Unspecified asthma, uncomplicated; Z88.7 Allergy status to serum and vaccine; Z79.82 Long term (current) use of aspirin
CPT/HCPCS: 26055; 36415; 80053; 85027; A9270; J2250; J2405; J2704; J3010; J3490; J7120